=== PATIENT | male | born 1985 | race Caucasian/White ===

== ENCOUNTER 2021-08-04 17:36 | Emergency (ER) | payer OTHER ==
[~2021-08-04] VITALS: Ht 182.9 cm; Wt 104.3 kg
[2021-08-04] MEDS ORDERED: ZOLOFT50 M1 PO (18:56)
[2021-08-04] MEDS ORDERED: CIPROFLOXIN HC2.5 M1 OPHTHALMIC (19:31)
[2021-08-04] MEDS ORDERED: APAP W/CODEINE1 TA2 PO (19:32)
[2021-08-04 19:51] VITALS: BP 142/87
== END 2021-08-04 19:52 | disposition home or self-care (01) ==
LOC: M.ERS 17:36
DX: S05.02XA Injury of conjunctiva and corneal abrasion without foreign body, left eye, initial encounter (principal); T15.92XA Foreign body on external eye, part unspecified, left eye, initial encounter; Z79.899 Other long term (current) drug therapy; X58.XXXA Exposure to other specified factors, initial encounter; Y93.89 Activity, other specified; Y92.89 Other specified places as the place of occurrence of the external cause; Y99.8 Other external cause status